=== PATIENT | male | born 1960 | race Caucasian/White ===

== ENCOUNTER 2023-10-20 19:40 | Emergency (ER) | payer MEDICAID ==
[~2023-10-20] VITALS: Ht 175.3 cm; Wt 86.3 kg
[2023-10-20] MEDS ORDERED: PRED20TA PO (20:29)
[2023-10-20] MEDS: dexamethasone sod phosphate 10mg/ml inj PO STA (20:38)
[2023-10-20 20:48] VITALS: BP 136/84; PULSE 89; RESP 17; TEMP 98.5; O2SAT 95
== END 2023-10-20 20:49 | disposition home or self-care (01) ==
LOC: ER 19:41
DX: M79.642 Pain in left hand (principal); M10.9 Gout, unspecified
CPT/HCPCS: 99283; J1100